=== PATIENT | female | born 1970 | race Two or more races ===

== ENCOUNTER → 2019-07-21 | Outpatient (CLI) | payer OTHER ==
[~2019-07-21] MED LIST: CITA20TA9 PO; MULT-6 PO; NITR100C56 PO
== END | disposition home or self-care (01) ==
LOC: RAD 08:32
PROVIDERS: ATTEND Nurse Practitioner Family
DX: R13.19 Other dysphagia (principal); R11.0 Nausea; K29.70 Gastritis, unspecified, without bleeding
CPT/HCPCS: 74220